=== PATIENT | male | born 1930 ===

== ENCOUNTER 2017-06-20 16:00 | Inpatient (IN) | payer MEDICARE, BC ==
[2017-07-11] MEDS ORDERED: WARF3TAB59 PO (16:55)
[2017-07-11] MEDS ORDERED: ASPI81TA31 PO (16:55)
[2017-07-11] MEDS ORDERED: SIMV40TA5 PO (16:55)
[2017-07-11] MEDS ORDERED: SOTA80TA PO (16:55)
[2017-07-11] MEDS ORDERED: LATA2.5D7 EACHEYE (16:55)
[2017-07-11] MEDS ORDERED: CARV6.252 PO (16:55)
[2017-07-11] MEDS ORDERED: FURO-152 PO (16:55)
[2017-07-11] MEDS ORDERED: POTA10CA43 PO (16:55)
[2017-07-11] MEDS ORDERED: RAMI10CA PO (16:55)
[2017-07-11] MEDS ORDERED: PROB500T9 PO (16:55)
[2017-07-11] MEDS ORDERED: ALPR0.5T8 PO (17:57)
[2017-07-16] MEDS ORDERED: RAMI5CAP PO (18:00)
[2017-07-19] MEDS ORDERED: Z GUARD REMEDY PASTE TOP (10:09)
[2017-07-19] MEDS ORDERED: DOCU-141 PO (10:09)
[2017-07-19] MEDS ORDERED: LACT1CAP57 PO (10:09)
[2017-07-19] MEDS ORDERED: CLOT30CR24 TP (10:09)
== END 2017-07-22 16:00 | disposition home health service (06) | DRG 559 ==
LOC: UNDOADMIN 16:00 → UNDODISIN 07-22 16:00
PROVIDERS: ADMIT Internal Medicine; ATTEND Internal Medicine
DX: S72.142D Displaced intertrochanteric fracture of left femur, subsequent encounter for closed fracture with routine healing (principal); K25.4 Chronic or unspecified gastric ulcer with hemorrhage; K22.6 Gastro-esophageal laceration-hemorrhage syndrome; D68.59 Other primary thrombophilia; I07.1 Rheumatic tricuspid insufficiency; D62 Acute posthemorrhagic anemia; I50.22 Chronic systolic (congestive) heart failure; I11.0 Hypertensive heart disease with heart failure; D72.829 Elevated white blood cell count, unspecified; I27.20 Pulmonary hypertension, unspecified; I25.5 Ischemic cardiomyopathy; I25.10 Atherosclerotic heart disease of native coronary artery without angina pectoris; I48.2 Chronic atrial fibrillation; Z86.73 Personal history of transient ischemic attack (TIA), and cerebral infarction without residual deficits; D53.9 Nutritional anemia, unspecified; E78.5 Hyperlipidemia, unspecified; K20.9 Esophagitis, unspecified; K22.8 Other specified diseases of esophagus; Z95.810 Presence of automatic (implantable) cardiac defibrillator; R26.9 Unspecified abnormalities of gait and mobility; W01.0XXD Fall on same level from slipping, tripping and stumbling without subsequent striking against object, subsequent encounter; Z95.1 Presence of aortocoronary bypass graft; Z95.2 Presence of prosthetic heart valve; Z82.49 Family history of ischemic heart disease and other diseases of the circulatory system; Z82.3 Family history of stroke; R41.82 Altered mental status, unspecified
CPT/HCPCS: 36415; 70030-TC; 71045; 83550; 83735; 84100; 85025; 85610; 86850; 86900; 86901; 86920; 92523; 93005; 97110; 97112; 97116; 97165; 97530; 97535; A4663; C9113; J2543; J3370; J3490; J7030; J7050; J7060; J8499; P9016-BL; P9021

== ENCOUNTER 2017-07-11 16:29 | Inpatient (IN) | payer MEDICARE, BC ==
[~2017-07-11] VITALS: Ht 172.7 cm; Wt 56.7 kg
[2017-07-11] MEDS ORDERED: POTA10CA43 PO (16:55)
[2017-07-11] MEDS ORDERED: SIMV40TA5 PO (16:55)
[2017-07-11] MEDS ORDERED: ASPI81TA31 PO (16:55)
[2017-07-11] MEDS ORDERED: LATA2.5D7 EACHEYE (16:55)
[2017-07-11] MEDS ORDERED: SOTA80TA PO (16:55)
[2017-07-11] MEDS ORDERED: PROB500T9 PO (16:55)
[2017-07-11] MEDS ORDERED: FURO-152 PO (16:55)
[2017-07-11] MEDS ORDERED: CARV6.252 PO (16:55)
[2017-07-11] MEDS ORDERED: WARF3TAB59 PO (16:55)
[2017-07-11] MEDS ORDERED: RAMI10CA PO (16:55)
[2017-07-11] MEDS ORDERED: HYDROCODONE/APAP 5-325MG TABLET PO PRN (17:30)
[2017-07-11] MEDS ORDERED: MAGNESIUM HYDROXIDE 30 ML LIQUID UDC PO PRN (17:30)
[2017-07-11] MEDS ORDERED: ACETAMINOPHEN 325 MG TABLET PO PRN (17:30)
[2017-07-11] MEDS ORDERED: Z GUARD REMEDY PASTE 57 GM TUBE TOP PRN (17:30)
[2017-07-11] MEDS ORDERED: ZOLPIDEM 5 MG TABLET PO PRN (17:30)
[2017-07-11] MEDS ORDERED: ONDANSETRON 4 MG/2 ML VIAL IV PRN (17:30)
[2017-07-11] MEDS ORDERED: ALPR0.5T8 PO (17:57)
[2017-07-11 18:22] VITALS: BP 95/56
[2017-07-11 20:21] VITALS: BP 95/60
[2017-07-11] MEDS ORDERED: DOCUSATE SODIUM 100 MG CAPSULE PO SCH (21:00)
[2017-07-11] MEDS ORDERED: ALPRAZOLAM 0.5 MG TABLET PO SCH (22:30)
[2017-07-12] VITALS (13 sets, daily range): BP systolic 108–128; BP diastolic 54–72
[2017-07-12] MEDS ORDERED: PANTOPRAZOLE SODIUM 40 MG TABLET.DR PO SCH (07:00)
[2017-07-12 07:25] LABS: CARBON DIOXIDE 26 mmol/L (21-32); CHLORIDE 101 mmol/L (98-107); CHOLESTEROL 78 mg/dL (<200); CREATININE 0.9 mg/dL (0.6-1.3); GLUCOSE 95 mg/dL (74-106); HDL CHOLESTEROL 24 mg/dL (40-60); PHOSPHOROUS 2.4 mg/dL (2.5-4.9); POTASSIUM 3.7 mmol/L (3.5-5.1); TRIGLYCERIDES 59 MG/DL (30-150); UREA NITROGEN, BLOOD 13 mg/dL (7-18)
[2017-07-12 07:30] LABS: EOSINOPHILS # (AUTO) 0.5 K/uL (0.0-0.7); MEAN CORPUSCULAR HGB CONC 34 g/dL (32.5-36.3); MONOCYTES # (AUTO) 1.5 K/uL (2.0-10.0); NEUTROPHILS # (AUTO) 7.1 K/uL (1.8-8.9)
[2017-07-12 07:35] LABS: BASOPHILS % (AUTO) 0.3 % (0.0-2.0); EOSINOPHILS % (AUTO) 4.2 % (0.0-7.0); LYMPHOCYTES # (AUTO) 3.4 K/uL (20.0-40.0); MEAN CORPUSCULAR HEMOGLOBIN 36.1 uug (23.8-33.4); MEAN CORPUSCULAR VOLUME 105.1 fL (73.0-96.2); MONOCYTES % (AUTO) 12.1 % (0.0-11.0); NEUTROPHILS % (AUTO) 56.4 % (38.5-71.5); PLATELET COUNT (AUTO) 177 K/uL (152-348); WHITE BLOOD COUNT (AUTO) 12.6 K/uL (3.6-10.2)
[2017-07-12 07:39] LABS: RED BLOOD CELL COUNT(AUTO) 1.96 MIL/uL (4.06-5.63)
[2017-07-12 07:41] LABS: HEMOGLOBIN 7.1 g/dL (12.5-16.3)
[2017-07-12 07:42] LABS: HEMATOCRIT 20.6 % (36.7-47.1)
[2017-07-12] MEDS ORDERED: CARVEDILOL 6.25 MG TABLET PO SCH (08:00)
[2017-07-12] MEDS: RAMIPRIL 5 MG CAPSULE PO SCH (09:00)
[2017-07-12] MEDS: ASPIRIN 81 MG TAB.CHEW PO SCH (09:16)
[2017-07-12] MEDS: POTASSIUM CHLORIDE 10 MEQ TAB.PRT.SR PO SCH (09:16)
[2017-07-12] MEDS: FUROSEMIDE 20 MG TABLET PO SCH (09:16)
[2017-07-12] MEDS: PROBENECID 500 MG TABLET PO SCH (09:19)
[2017-07-12 13:51] LABS: *OCCULT BLOOD STOOL POSITIVE (NEGATIVE)
[2017-07-12] MEDS ORDERED: NEUTRA PHOS PACKET PO ONE (15:30)
[2017-07-12] MEDS: SOTALOL HCL 80 MG TABLET PO SCH (16:31)
[2017-07-12] MEDS: WARFARIN SODIUM 3 MG TABLET PO SCH (16:56)
[2017-07-12] MEDS: SIMVASTATIN 40 MG TABLET PO SCH (20:45)
[2017-07-12] MEDS: ALPRAZOLAM 0.5 MG TABLET PO SCH (20:45)
[2017-07-12] MEDS: LATANOPROST OPHT DROP 2.5 ML BOTTLE EACHEYE SCH (20:46)
[2017-07-13] MEDS ORDERED: MAGNESIUM HYDROXIDE 30 ML LIQUID UDC PO PRN (00:15)
[2017-07-13] MEDS ORDERED: FUROSEMIDE 20 MG/2 ML VIAL IV PRN (00:45)
[2017-07-13] MEDS: HYDROCODONE/APAP 5-325MG TABLET PO PRN ×2 (01:37→23:36)
[2017-07-13 01:42] VITALS: BP 110/67
[2017-07-13] MEDS: SOTALOL HCL 80 MG TABLET PO SCH (06:33)
[2017-07-13 07:10] LABS: ALANINE AMINOTRANSFERASE 30 U/L (16-63); ALKALINE PHOSPHATASE 78 U/L (50-136); ASPARTATE AMINOTRANSFERASE 32 U/L (15-37); BILIRUBIN,TOTAL 1.4 mg/dL (0.2-1.0); CARBON DIOXIDE 27 mmol/L (21-32); CHLORIDE 102 mmol/L (98-107); CREATININE 0.9 mg/dL (0.6-1.3); GLUCOSE 99 mg/dL (74-106); POTASSIUM 4.4 mmol/L (3.5-5.1); TOTAL PROTEIN, SERUM 5.6 g/dL (6.4-8.2); UREA NITROGEN, BLOOD 13 mg/dL (7-18)
[2017-07-13 07:46] LABS: BASOPHILS % (AUTO) 0.2 % (0.0-2.0); EOSINOPHILS # (AUTO) 0.6 K/uL (0.0-0.7); EOSINOPHILS % (AUTO) 4.2 % (0.0-7.0); LYMPHOCYTES # (AUTO) 3.9 K/uL (20.0-40.0); LYMPHOCYTES % (AUTO) 29.9 % (20.5-51.5); MEAN CORPUSCULAR HEMOGLOBIN 33.8 uug (23.8-33.4); MEAN CORPUSCULAR HGB CONC 34 g/dL (32.5-36.3); MONOCYTES # (AUTO) 1.3 K/uL (2.0-10.0); NEUTROPHILS # (AUTO) 7.3 K/uL (1.8-8.9); NEUTROPHILS % (AUTO) 55.7 % (38.5-71.5); PLATELET COUNT (AUTO) 182 K/uL (152-348); WHITE BLOOD COUNT (AUTO) 13.1 K/uL (3.6-10.2)
[2017-07-13 07:59] VITALS: BP 119/65
[2017-07-13 08:15] LABS: RED BLOOD CELL COUNT(AUTO) 2.45 MIL/uL (4.06-5.63)
[2017-07-13 08:16] LABS: HEMATOCRIT 24.5 % (36.7-47.1); HEMOGLOBIN 8.3 g/dL (12.5-16.3)
[2017-07-13 08:17] LABS: MEAN CORPUSCULAR VOLUME 100.1 fL (73.0-96.2)
[2017-07-13] MEDS: FUROSEMIDE 20 MG TABLET PO SCH (08:48)
[2017-07-13] MEDS: RAMIPRIL 5 MG CAPSULE PO SCH (08:48)
[2017-07-13] MEDS: ASPIRIN 81 MG TAB.CHEW PO SCH (08:48)
[2017-07-13] MEDS: POTASSIUM CHLORIDE 10 MEQ TAB.PRT.SR PO SCH (08:48)
[2017-07-13] MEDS: PROBENECID 500 MG TABLET PO SCH (08:50)
[2017-07-13 09:21] LABS: MAGNESIUM 2.1 mg/dL (1.8-2.4); PHOSPHOROUS 2.7 mg/dL (2.5-4.9)
[2017-07-13] MEDS: WARFARIN SODIUM 3 MG TABLET PO SCH (18:54)
[2017-07-13] MEDS: CARVEDILOL 3.125 MG TABLET PO SCH (18:57)
[2017-07-13 19:53] VITALS: BP 110/62
[2017-07-13] MEDS: ALPRAZOLAM 0.5 MG TABLET PO SCH (21:13)
[2017-07-13] MEDS: SIMVASTATIN 40 MG TABLET PO SCH (21:13)
[2017-07-13] MEDS: LATANOPROST OPHT DROP 2.5 ML BOTTLE EACHEYE SCH (21:13)
[2017-07-14 07:23] LABS: BASOPHILS % (AUTO) 0.2 % (0.0-2.0); EOSINOPHILS # (AUTO) 0.6 K/uL (0.0-0.7); EOSINOPHILS % (AUTO) 4.2 % (0.0-7.0); HEMOGLOBIN 8.4 g/dL (12.5-16.3); LYMPHOCYTES # (AUTO) 3.8 K/uL (20.0-40.0); LYMPHOCYTES % (AUTO) 27.8 % (20.5-51.5); MEAN CORPUSCULAR HEMOGLOBIN 34.2 uug (23.8-33.4); MEAN CORPUSCULAR HGB CONC 34 g/dL (32.5-36.3); MEAN CORPUSCULAR VOLUME 101.6 fL (73.0-96.2); MONOCYTES # (AUTO) 1.3 K/uL (2.0-10.0); MONOCYTES % (AUTO) 9.7 % (0.0-11.0); NEUTROPHILS % (AUTO) 58.1 % (38.5-71.5); PLATELET COUNT (AUTO) 212 K/uL (152-348); WHITE BLOOD COUNT (AUTO) 13.8 K/uL (3.6-10.2)
[2017-07-14 07:25] LABS: RED BLOOD CELL COUNT(AUTO) 2.46 MIL/uL (4.06-5.63)
[2017-07-14 08:28] VITALS: BP 120/54
[2017-07-14] MEDS: LACTASE PO SCH ×3 (08:29→17:23)
[2017-07-14] MEDS: POTASSIUM CHLORIDE 10 MEQ TAB.PRT.SR PO SCH (08:29)
[2017-07-14] MEDS: PROBENECID 500 MG TABLET PO SCH (08:30)
[2017-07-14] MEDS: RAMIPRIL 5 MG CAPSULE PO SCH (08:30)
[2017-07-14] MEDS: FUROSEMIDE 20 MG TABLET PO SCH (08:30)
[2017-07-14] MEDS: CARVEDILOL 3.125 MG TABLET PO SCH ×2 (08:31→18:00)
[2017-07-14] MEDS ORDERED: PANTOPRAZOLE SODIUM 40 MG VIAL IV SCH (09:00)
[2017-07-14] MEDS: SUCRALFATE 1 G TABLET PO SCH ×2 (14:15→17:23)
[2017-07-14] MEDS: PANTOPRAZOLE SODIUM 40 MG TABLET.DR PO SCH (17:23)
[2017-07-14] MEDS: WARFARIN SODIUM 3 MG TABLET PO SCH (17:30)
[2017-07-14 19:30] VITALS: BP 127/76
[2017-07-14] MEDS ORDERED: MIRALAX 17 GM POWD.PACK PO PRN (19:30)
[2017-07-14] MEDS: ALPRAZOLAM 0.5 MG TABLET PO SCH (20:16)
[2017-07-14] MEDS: SIMVASTATIN 40 MG TABLET PO SCH (20:16)
[2017-07-14] MEDS: LATANOPROST OPHT DROP 2.5 ML BOTTLE EACHEYE SCH (20:17)
[2017-07-14] MEDS: HYDROCODONE/APAP 5-325MG TABLET PO PRN (20:18)
[2017-07-15 08:00] VITALS: BP 108/56
[2017-07-15] MEDS: LACTASE PO SCH ×3 (08:39→17:01)
[2017-07-15] MEDS: SUCRALFATE 1 G TABLET PO SCH ×3 (08:39→17:02)
[2017-07-15] MEDS: CARVEDILOL 3.125 MG TABLET PO SCH ×2 (08:40→17:01)
[2017-07-15] MEDS: PANTOPRAZOLE SODIUM 40 MG TABLET.DR PO SCH ×2 (08:40→17:03)
[2017-07-15] MEDS: PROBENECID 500 MG TABLET PO SCH (08:41)
[2017-07-15] MEDS: RAMIPRIL 5 MG CAPSULE PO SCH (08:41)
[2017-07-15] MEDS: FUROSEMIDE 20 MG TABLET PO SCH (08:48)
[2017-07-15] MEDS: POTASSIUM CHLORIDE 10 MEQ TAB.PRT.SR PO SCH (08:52)
[2017-07-15 09:38] LABS: IRON, SERUM 50 ug/dL (50-175)
[2017-07-15 09:52] LABS: BASOPHILS % (AUTO) 0.2 % (0.0-2.0); EOSINOPHILS # (AUTO) 0.6 K/uL (0.0-0.7); EOSINOPHILS % (AUTO) 3.8 % (0.0-7.0); HEMOGLOBIN 9.3 g/dL (12.5-16.3); LYMPHOCYTES % (AUTO) 27.2 % (20.5-51.5); MONOCYTES # (AUTO) 1.2 K/uL (2.0-10.0); NEUTROPHILS % (AUTO) 60.8 % (38.5-71.5)
[2017-07-15 10:00] LABS: HEMATOCRIT 27.5 % (36.7-47.1); MEAN CORPUSCULAR HEMOGLOBIN 34.6 uug (23.8-33.4); MEAN CORPUSCULAR HGB CONC 34 g/dL (32.5-36.3); MEAN CORPUSCULAR VOLUME 102.2 fL (73.0-96.2); PLATELET COUNT (AUTO) 262 K/uL (152-348); RED BLOOD CELL COUNT(AUTO) 2.69 MIL/uL (4.06-5.63); WHITE BLOOD COUNT (AUTO) 14.6 K/uL (3.6-10.2)
[2017-07-15] MEDS: HYDROCODONE/APAP 5-325MG TABLET PO PRN (12:20)
[2017-07-15] MEDS: WARFARIN SODIUM 3 MG TABLET PO SCH (17:03)
[2017-07-15 20:20] VITALS: BP 100/51
[2017-07-15] MEDS: LATANOPROST OPHT DROP 2.5 ML BOTTLE EACHEYE SCH (21:05)
[2017-07-15 21:06] VITALS: BP 104/56
[2017-07-15] MEDS: ALPRAZOLAM 0.5 MG TABLET PO SCH (21:06)
[2017-07-15] MEDS: SIMVASTATIN 40 MG TABLET PO SCH (21:06)
[2017-07-16 07:30] VITALS: BP 106/66
[2017-07-16 08:21] LABS: *OCCULT BLOOD STOOL NEGATIVE (NEGATIVE)
[2017-07-16] MEDS: LACTASE PO SCH ×2 (08:28→11:30)
[2017-07-16] MEDS: RAMIPRIL 5 MG CAPSULE PO SCH ×2 (08:29→09:00)
[2017-07-16] MEDS: SUCRALFATE 1 G TABLET PO SCH (08:29)
[2017-07-16] MEDS: FUROSEMIDE 20 MG TABLET PO SCH (08:29)
[2017-07-16] MEDS: PROBENECID 500 MG TABLET PO SCH (08:29)
[2017-07-16] MEDS: POTASSIUM CHLORIDE 10 MEQ TAB.PRT.SR PO SCH (08:29)
[2017-07-16] MEDS: PANTOPRAZOLE SODIUM 40 MG TABLET.DR PO SCH (08:30)
[2017-07-16] MEDS: CARVEDILOL 3.125 MG TABLET PO SCH ×2 (08:30→09:30)
[2017-07-16] MEDS ORDERED: NITROGLYCERIN 0.4 MG/TAB BOTTLE SL PRN (12:30)
[2017-07-16 12:52] LABS: CARBON DIOXIDE 24 mmol/L (21-32); CHLORIDE 96 mmol/L (98-107); GLUCOSE 96 mg/dL (74-106); UREA NITROGEN, BLOOD 15 mg/dL (7-18)
[2017-07-16 12:56] LABS: BASOPHILS # (AUTO) 0.1 K/uL (0.0-8.0); BASOPHILS % (AUTO) 0.3 % (0.0-2.0); EOSINOPHILS # (AUTO) 0.4 K/uL (0.0-0.7); EOSINOPHILS % (AUTO) 1.9 % (0.0-7.0); HEMATOCRIT 31.1 % (36.7-47.1); HEMOGLOBIN 10.3 g/dL (12.5-16.3); LYMPHOCYTES # (AUTO) 8.1 K/uL (20.0-40.0); LYMPHOCYTES % (AUTO) 39.6 % (20.5-51.5); MEAN CORPUSCULAR HGB CONC 33 g/dL (32.5-36.3); MEAN CORPUSCULAR VOLUME 102.1 fL (73.0-96.2); MONOCYTES # (AUTO) 1.7 K/uL (2.0-10.0); MONOCYTES % (AUTO) 8.3 % (0.0-11.0); NEUTROPHILS # (AUTO) 10.3 K/uL (1.8-8.9); NEUTROPHILS % (AUTO) 49.9 % (38.5-71.5); PLATELET COUNT (AUTO) 382 K/uL (152-348); RED BLOOD CELL COUNT(AUTO) 3.04 MIL/uL (4.06-5.63); WHITE BLOOD COUNT (AUTO) 20.5 K/uL (3.6-10.2)
[2017-07-16 13:03] LABS: ALANINE AMINOTRANSFERASE 44 U/L (16-63); ALKALINE PHOSPHATASE 119 U/L (50-136); ASPARTATE AMINOTRANSFERASE 35 U/L (15-37); BILIRUBIN,TOTAL 1.6 mg/dL (0.2-1.0); PHOSPHOROUS 2.2 mg/dL (2.5-4.9); TOTAL PROTEIN, SERUM 7.4 g/dL (6.4-8.2)
[2017-07-16] MEDS ORDERED: RAMI5CAP PO (18:00)
[2017-07-18 20:00] VITALS: BP 104/60
[2017-07-19 08:45] VITALS: BP 134/84
[2017-07-19] MEDS ORDERED: Z GUARD REMEDY PASTE 57 GM TUBE TOP PRN (10:45)
[2017-07-19] MEDS: ASPIRIN 81 MG TAB.CHEW PO SCH (11:06)
[2017-07-19] MEDS: CARVEDILOL 3.125 MG TABLET PO SCH ×2 (11:07→17:11)
[2017-07-19] MEDS ORDERED: WARFARIN SODIUM 3 MG TABLET PO SCH (17:00)
[2017-07-19] MEDS: ACETAMINOPHEN 325 MG TABLET PO PRN ×2 (17:30→23:29)
[2017-07-19] MEDS ORDERED: PIPERACILLIN SODIUM/TAZOBACTAM 4.5 G in IV DEXTROSE 5% 50 ML IV SCH (19:00)
[2017-07-19 20:10] VITALS: BP 137/67
[2017-07-19] MEDS: ALPRAZOLAM 0.5 MG TABLET PO SCH (20:13)
[2017-07-19] MEDS: LACTOBACILLUS RHAMNOSUS GG 1 EACH CAPSULE PO SCH (20:13)
[2017-07-19] MEDS: DOCUSATE SODIUM 100 MG CAPSULE PO SCH (20:14)
[2017-07-19] MEDS: CLOTRIMAZOLE 1% CREAM 30 GM TUBE TP SCH (20:17)
[2017-07-19] MEDS: VANCOMYCIN IV 1 G in PREMIXED 0 EACH IV SCH (20:20)
[2017-07-19 20:48] LABS: *BILIRUBIN,URIN NEGATIVE (NEGATIVE); *BLOOD, URINE 2+ (NEGATIVE); *CLARITY,URINE CLEAR (CLEAR); *COLOR,URINE YELLOW (YELLOW); *KETONES,URINE TRACE (NEGATIVE); *PROTEIN,URINE 1+ (NEGATIVE); *UROBILINOGEN,URINE 0.2 E.U./dl (NORMAL); LEUKOCYTE ESTERASE ,URINE NEGATIVE (NEGATIVE); NITRITE, URINE NEGATIVE (NEGATIVE); PH,URINE 5.5 (5.0-8.0); UGLUCOSE NEGATIVE (NEGATIVE)
[2017-07-19] MEDS: LATANOPROST OPHT DROP 2.5 ML BOTTLE EACHEYE SCH (21:07)
[2017-07-19 21:10] LABS: MUCUS,URINE MANY /LPF (0-FEW); WBC,URINE 0-3 /HPF (0-3)
[2017-07-20] MEDS: PIPERACILLIN/TAZOBACTAM/D5W 2.25 G in PREMIXED 1 EACH IV SCH ×3 (00:02→12:05)
[2017-07-20] MEDS: ACETAMINOPHEN 325 MG TABLET PO PRN (05:58)
[2017-07-20 07:32] LABS: BASOPHILS % (AUTO) 0.3 % (0.0-2.0); CARBON DIOXIDE 26 mmol/L (21-32); CHLORIDE 97 mmol/L (98-107); CREATININE 0.8 mg/dL (0.6-1.3); EOSINOPHILS # (AUTO) 0.2 K/uL (0.0-0.7); EOSINOPHILS % (AUTO) 1.9 % (0.0-7.0); GLUCOSE 96 mg/dL (74-106); HEMATOCRIT 24.5 % (36.7-47.1); HEMOGLOBIN 8.6 g/dL (12.5-16.3); LYMPHOCYTES # (AUTO) 2.7 K/uL (20.0-40.0); LYMPHOCYTES % (AUTO) 27.8 % (20.5-51.5); MEAN CORPUSCULAR HEMOGLOBIN 40.4 uug (23.8-33.4); MEAN CORPUSCULAR HGB CONC 35 g/dL (32.5-36.3); MEAN CORPUSCULAR VOLUME 114.4 fL (73.0-96.2); MONOCYTES # (AUTO) 1.4 K/uL (2.0-10.0); MONOCYTES % (AUTO) 14.7 % (0.0-11.0); NEUTROPHILS # (AUTO) 5.4 K/uL (1.8-8.9); NEUTROPHILS % (AUTO) 55.3 % (38.5-71.5); PLATELET COUNT (AUTO) 227 K/uL (152-348); POTASSIUM 3.5 mmol/L (3.5-5.1); UREA NITROGEN, BLOOD 13 mg/dL (7-18); WHITE BLOOD COUNT (AUTO) 9.8 K/uL (3.6-10.2)
[2017-07-20 07:45] LABS: RED BLOOD CELL COUNT(AUTO) 2.14 MIL/uL (4.06-5.63)
[2017-07-20] MEDS: CLOTRIMAZOLE 1% CREAM 30 GM TUBE TP SCH ×2 (07:54→20:37)
[2017-07-20] MEDS: LACTOBACILLUS RHAMNOSUS GG 1 EACH CAPSULE PO SCH ×2 (08:21→20:32)
[2017-07-20] MEDS: ASPIRIN 81 MG TAB.CHEW PO SCH (08:21)
[2017-07-20] MEDS: CARVEDILOL 3.125 MG TABLET PO SCH ×2 (08:21→17:11)
[2017-07-20 08:29] VITALS: BP 127/61
[2017-07-20] MEDS ORDERED: WARFARIN SODIUM 3 MG TABLET PO SCH (17:00)
[2017-07-20] MEDS ORDERED: WARFARIN SODIUM 4 MG TABLET PO SCH (17:00)
[2017-07-20] MEDS: PIPERACILLIN SODIUM/TAZOBACTAM 4.5 G in IV DEXTROSE 5% 50 ML IV SCH (17:58)
[2017-07-20 18:26] VITALS: BP 110/67
[2017-07-20] MEDS: ALPRAZOLAM 0.5 MG TABLET PO SCH (20:32)
[2017-07-20] MEDS: LATANOPROST OPHT DROP 2.5 ML BOTTLE EACHEYE SCH (20:32)
[2017-07-20] MEDS: DOCUSATE SODIUM 100 MG CAPSULE PO SCH (20:32)
[2017-07-20] MEDS: SIMVASTATIN 40 MG TABLET PO SCH (20:33)
[2017-07-20] MEDS: VANCOMYCIN IV 1 G in PREMIXED 0 EACH IV SCH (23:10)
[2017-07-21] MEDS: PIPERACILLIN SODIUM/TAZOBACTAM 4.5 G in IV DEXTROSE 5% 50 ML IV SCH ×3 (01:54→17:29)
[2017-07-21] MEDS: CARVEDILOL 3.125 MG TABLET PO SCH ×2 (08:00→17:32)
[2017-07-21 08:59] VITALS: BP 101/65
[2017-07-21] MEDS: RAMIPRIL 5 MG CAPSULE PO SCH (09:00)
[2017-07-21] MEDS: SUCRALFATE 1 G TABLET PO SCH ×4 (09:16→17:26)
[2017-07-21] MEDS: LACTOBACILLUS RHAMNOSUS GG 1 EACH CAPSULE PO SCH ×2 (09:17→20:33)
[2017-07-21] MEDS: ASPIRIN 81 MG TAB.CHEW PO SCH (09:17)
[2017-07-21] MEDS: LACTASE PO SCH ×3 (09:17→17:26)
[2017-07-21] MEDS: ACETAMINOPHEN 325 MG TABLET PO PRN (09:17)
[2017-07-21] MEDS: CLOTRIMAZOLE 1% CREAM 30 GM TUBE TP SCH ×2 (09:18→20:35)
[2017-07-21] MEDS: PROBENECID 500 MG TABLET PO SCH (09:18)
[2017-07-21 10:52] LABS: BASOPHILS % (AUTO) 0.3 % (0.0-2.0); EOSINOPHILS # (AUTO) 0.2 K/uL (0.0-0.7); MONOCYTES # (AUTO) 1.4 K/uL (2.0-10.0)
[2017-07-21 10:57] LABS: EOSINOPHILS % (AUTO) 1.2 % (0.0-7.0); HEMATOCRIT 26.3 % (36.7-47.1); LYMPHOCYTES # (AUTO) 5.2 K/uL (20.0-40.0); LYMPHOCYTES % (AUTO) 39.9 % (20.5-51.5); MEAN CORPUSCULAR HEMOGLOBIN 34.9 uug (23.8-33.4); MEAN CORPUSCULAR HGB CONC 34 g/dL (32.5-36.3); MONOCYTES % (AUTO) 10.8 % (0.0-11.0); NEUTROPHILS # (AUTO) 6.3 K/uL (1.8-8.9); NEUTROPHILS % (AUTO) 47.8 % (38.5-71.5); RED BLOOD CELL COUNT(AUTO) 2.59 MIL/uL (4.06-5.63)
[2017-07-21 10:59] LABS: WHITE BLOOD COUNT (AUTO) 13.1 K/uL (3.6-10.2)
[2017-07-21 11:00] LABS: MEAN CORPUSCULAR VOLUME 101.7 fL (73.0-96.2); PLATELET COUNT (AUTO) 284 K/uL (152-348)
[2017-07-21] MEDS ORDERED: WARFARIN SODIUM 3 MG TABLET PO SCH (18:30)
[2017-07-21] MEDS: DOCUSATE SODIUM 100 MG CAPSULE PO SCH (20:33)
[2017-07-21] MEDS: SIMVASTATIN 40 MG TABLET PO SCH (20:33)
[2017-07-21] MEDS: ALPRAZOLAM 0.5 MG TABLET PO SCH (20:33)
[2017-07-21 20:35] VITALS: BP 106/59
[2017-07-21] MEDS: LATANOPROST OPHT DROP 2.5 ML BOTTLE EACHEYE SCH (20:39)
[2017-07-22] MEDS: VANCOMYCIN IV 1 G in PREMIXED 0 EACH IV SCH (00:12)
[2017-07-22] MEDS: PIPERACILLIN SODIUM/TAZOBACTAM 4.5 G in IV DEXTROSE 5% 50 ML IV SCH (01:54)
[2017-07-22 08:00] VITALS: BP 115/66
[2017-07-22] MEDS: ASPIRIN 81 MG TAB.CHEW PO SCH (08:52)
[2017-07-22] MEDS: SUCRALFATE 1 G TABLET PO SCH (08:52)
[2017-07-22] MEDS: ACETAMINOPHEN 325 MG TABLET PO PRN (08:52)
[2017-07-22] MEDS: LACTOBACILLUS RHAMNOSUS GG 1 EACH CAPSULE PO SCH (08:52)
[2017-07-22 08:53] VITALS: BP 115/66
[2017-07-22] MEDS: LACTASE PO SCH (08:53)
[2017-07-22] MEDS: CARVEDILOL 3.125 MG TABLET PO SCH (08:53)
[2017-07-22] MEDS: RAMIPRIL 5 MG CAPSULE PO SCH (08:53)
[2017-07-22] MEDS: PROBENECID 500 MG TABLET PO SCH (08:54)
[2017-07-22] MEDS: CLOTRIMAZOLE 1% CREAM 30 GM TUBE TP SCH (08:54)
[2017-07-22] MEDS ORDERED: WARFARIN SODIUM 3 MG TABLET PO SCH (17:00)
== END 2017-07-16 16:00 | disposition short-term general hospital (02) | DRG 559 ==
LOC: UNDOADMIN 16:29 → UNDOLOA 07-16 14:00 → UNDODISIN 07-22 11:00
PROVIDERS: ADMIT Physical Medicine & Rehabilitation Pain Medicine; ATTEND Physical Medicine & Rehabilitation Pain Medicine
PROC: 30233N1 Transfusion of Nonautologous Red Blood Cells into Peripheral Vein, Percutaneous Approach (ICD-10-PCS; principal; 2017-07-12)
DX: S72.142D Displaced intertrochanteric fracture of left femur, subsequent encounter for closed fracture with routine healing (principal); K25.4 Chronic or unspecified gastric ulcer with hemorrhage; K22.6 Gastro-esophageal laceration-hemorrhage syndrome; D68.59 Other primary thrombophilia; I07.1 Rheumatic tricuspid insufficiency; D62 Acute posthemorrhagic anemia; I50.22 Chronic systolic (congestive) heart failure; I11.0 Hypertensive heart disease with heart failure; D72.829 Elevated white blood cell count, unspecified; I27.20 Pulmonary hypertension, unspecified; I25.5 Ischemic cardiomyopathy; I25.10 Atherosclerotic heart disease of native coronary artery without angina pectoris; I48.2 Chronic atrial fibrillation; Z86.73 Personal history of transient ischemic attack (TIA), and cerebral infarction without residual deficits; D53.9 Nutritional anemia, unspecified; E78.5 Hyperlipidemia, unspecified; K20.9 Esophagitis, unspecified; K22.8 Other specified diseases of esophagus; Z95.810 Presence of automatic (implantable) cardiac defibrillator; R26.9 Unspecified abnormalities of gait and mobility; W01.0XXD Fall on same level from slipping, tripping and stumbling without subsequent striking against object, subsequent encounter; Z95.1 Presence of aortocoronary bypass graft; Z95.2 Presence of prosthetic heart valve; Z82.49 Family history of ischemic heart disease and other diseases of the circulatory system; Z82.3 Family history of stroke; R41.82 Altered mental status, unspecified
CPT/HCPCS: 36415; 70030-TC; 71045; 83550; 83735; 84100; 85025; 85610; 86850; 86900; 86901; 86920; 92523; 93005; 97110; 97112; 97116; 97165; 97530; 97535; A4663; C9113; J2543; J3370; J3490; J7030; J7050; J7060; J8499; P9016-BL; P9021

== ENCOUNTER 2017-07-16 12:47 | Inpatient (IN) | payer MEDICARE, BC ==
[~2017-07-16] VITALS: Ht 167.6 cm; Wt 56.4 kg
[~2017-07-16 12:47] MED LIST: ALPR0.5T8 PO; ASPI81TA31 PO; CARV6.252 PO; FURO-152 PO; LATA2.5D7 EACHEYE; POTA10CA43 PO; PROB500T9 PO; RAMI10CA PO; SIMV40TA5 PO; SOTA80TA PO; WARF3TAB59 PO
[2017-07-16] MEDS ORDERED: ALPRAZOLAM 0.5 MG TABLET ONE (13:15)
[2017-07-16] MEDS ORDERED: ALPRAZOLAM 0.25 MG TABLET PO ONE (13:15)
[2017-07-16] MEDS ORDERED: LORAZEPAM 2 MG/1 ML VIAL IV ONE (13:30)
[2017-07-16] MEDS ORDERED: LORAZEPAM 2 MG/1 ML VIAL ONE (13:33)
[2017-07-16 15:00] VITALS: BP 107/55
[2017-07-16] MEDS ORDERED: Z GUARD REMEDY PASTE 57 GM TUBE TOP PRN (16:00)
[2017-07-16] MEDS ORDERED: NEUTRA PHOS PACKET PO ONE (16:30)
[2017-07-16 16:50] LABS: BILIRUBIN,DIRECT 0.3 mg/dL (0.0-0.2); BILIRUBIN,TOTAL 1.5 mg/dL (0.2-1.0); TOTAL PROTEIN, SERUM 6.6 g/dL (6.4-8.2)
[2017-07-16] MEDS: CARVEDILOL 3.125 MG TABLET PO SCH ×2 (18:00→18:02)
[2017-07-16] MEDS ORDERED: RAMI5CAP PO (18:00)
[2017-07-16] MEDS ORDERED: ACETAMINOPHEN 325 MG TABLET PO PRN (18:30)
[2017-07-16] MEDS ORDERED: MORPHINE SULFATE 2 MG/1 ML DISP.SYRIN IV PRN (18:30)
[2017-07-16] MEDS ORDERED: LEVALBUTEROL HCL NEB 0.63 MG/3 ML NEBU NEB PRN (18:30)
[2017-07-16] MEDS ORDERED: ONDANSETRON 4 MG/2 ML VIAL IV PRN (18:30)
[2017-07-16] MEDS: WARFARIN SODIUM 3 MG TABLET PO SCH (18:44)
[2017-07-16 20:47] VITALS: BP 150/66
[2017-07-16] MEDS ORDERED: DOCUSATE SODIUM 250 MG CAPSULE PO SCH (21:00)
[2017-07-16] MEDS: DOCUSATE SODIUM 100 MG CAPSULE PO SCH (21:21)
[2017-07-16] MEDS: LATANOPROST OPHT DROP 2.5 ML BOTTLE EACHEYE SCH (21:21)
[2017-07-16] MEDS: VANCOMYCIN IV 1 G in PREMIXED 0 EACH IV SCH (21:22)
[2017-07-16] MEDS ORDERED: ALPRAZOLAM 0.5 MG TABLET PO ONE (22:15)
[2017-07-16] MEDS: PIPERACILLIN/TAZOBACTAM/D5W 3.375 G in PREMIXED 1 EACH IV SCH (22:19)
[2017-07-17 00:34] VITALS: BP 116/62
[2017-07-17 04:00] VITALS: BP 146/77
[2017-07-17] MEDS: PIPERACILLIN/TAZOBACTAM/D5W 3.375 G in PREMIXED 1 EACH IV SCH ×3 (05:32→21:07)
[2017-07-17] MEDS: PANTOPRAZOLE SODIUM 40 MG TABLET.DR PO SCH (05:32)
[2017-07-17 07:52] LABS: BASOPHILS % (AUTO) 0.2 % (0.0-2.0); EOSINOPHILS # (AUTO) 0.4 K/uL (0.0-0.7); EOSINOPHILS % (AUTO) 2.8 % (0.0-7.0); LYMPHOCYTES # (AUTO) 4.6 K/uL (20.0-40.0); LYMPHOCYTES % (AUTO) 33.6 % (20.5-51.5); MEAN CORPUSCULAR HEMOGLOBIN 34.6 uug (23.8-33.4); MEAN CORPUSCULAR HGB CONC 34 g/dL (32.5-36.3); MONOCYTES # (AUTO) 1.4 K/uL (2.0-10.0); MONOCYTES % (AUTO) 10.5 % (0.0-11.0); NEUTROPHILS # (AUTO) 7.3 K/uL (1.8-8.9); NEUTROPHILS % (AUTO) 52.9 % (38.5-71.5); RED BLOOD CELL COUNT(AUTO) 2.56 MIL/uL (4.06-5.63)
[2017-07-17 07:54] LABS: HEMOGLOBIN 8.9 g/dL (12.5-16.3); WHITE BLOOD COUNT (AUTO) 13.8 K/uL (3.6-10.2)
[2017-07-17 07:55] LABS: MEAN CORPUSCULAR VOLUME 101.6 fL (73.0-96.2)
[2017-07-17 07:56] VITALS: BP 97/55
[2017-07-17 07:57] LABS: PLATELET COUNT (AUTO) 246 K/uL (152-348)
[2017-07-17] MEDS ORDERED: ALBUTEROL SULFATE 1.25 MG/3 ML NEBU NEB PRN (08:00)
[2017-07-17] MEDS: CARVEDILOL 3.125 MG TABLET PO SCH ×2 (08:57→17:26)
[2017-07-17] MEDS: ASPIRIN 81 MG TAB.CHEW PO SCH (08:58)
[2017-07-17 09:09] LABS: ALANINE AMINOTRANSFERASE 34 U/L (16-63); ALKALINE PHOSPHATASE 108 U/L (50-136); ASPARTATE AMINOTRANSFERASE 31 U/L (15-37); BILIRUBIN,TOTAL 1.4 mg/dL (0.2-1.0); CARBON DIOXIDE 27 mmol/L (21-32); CHLORIDE 97 mmol/L (98-107); GLUCOSE 99 mg/dL (74-106); MAGNESIUM 2.1 mg/dL (1.8-2.4); PHOSPHOROUS 4.4 mg/dL (2.5-4.9); POTASSIUM 4.3 mmol/L (3.5-5.1); TOTAL PROTEIN, SERUM 6.2 g/dL (6.4-8.2); UREA NITROGEN, BLOOD 14 mg/dL (7-18)
[2017-07-17 09:18] LABS: THYROID STIMULATING HORMONE 2.751 mIU/mL (0.358-3.740)
[2017-07-17 11:09] VITALS: BP 100/47
[2017-07-17 15:01] VITALS: BP 103/56
[2017-07-17] MEDS: WARFARIN SODIUM 3 MG TABLET PO SCH (17:28)
[2017-07-17] MEDS ORDERED: ALPRAZOLAM 0.5 MG TABLET PO SCH (18:00)
[2017-07-17 20:10] VITALS: BP 101/56
[2017-07-17] MEDS: DOCUSATE SODIUM 100 MG CAPSULE PO SCH (20:28)
[2017-07-17] MEDS: LATANOPROST OPHT DROP 2.5 ML BOTTLE EACHEYE SCH (20:28)
[2017-07-17] MEDS: LACTOBACILLUS RHAMNOSUS GG 1 EACH CAPSULE PO SCH (20:28)
[2017-07-17] MEDS: CLOTRIMAZOLE 1% CREAM 30 GM TUBE TOP SCH (20:28)
[2017-07-17] MEDS: VANCOMYCIN IV 1 G in PREMIXED 0 EACH IV SCH (21:48)
[2017-07-18 00:01] VITALS: BP 97/55
[2017-07-18 04:34] VITALS: BP 104/55
[2017-07-18] MEDS: PIPERACILLIN/TAZOBACTAM/D5W 3.375 G in PREMIXED 1 EACH IV SCH ×2 (05:09→13:21)
[2017-07-18] MEDS: PANTOPRAZOLE SODIUM 40 MG TABLET.DR PO SCH (06:08)
[2017-07-18 07:02] LABS: CARBON DIOXIDE 27 mmol/L (21-32); CHLORIDE 98 mmol/L (98-107); CREATININE 0.9 mg/dL (0.6-1.3); GLUCOSE 102 mg/dL (74-106); MAGNESIUM 2.1 mg/dL (1.8-2.4); PHOSPHOROUS 3.6 mg/dL (2.5-4.9); POTASSIUM 3.9 mmol/L (3.5-5.1); UREA NITROGEN, BLOOD 13 mg/dL (7-18)
[2017-07-18 07:25] LABS: BASOPHILS % (AUTO) 0.4 % (0.0-2.0); EOSINOPHILS # (AUTO) 0.4 K/uL (0.0-0.7); HEMATOCRIT 26.5 % (36.7-47.1); LYMPHOCYTES # (AUTO) 4.3 K/uL (20.0-40.0); LYMPHOCYTES % (AUTO) 32.1 % (20.5-51.5); MEAN CORPUSCULAR HEMOGLOBIN 34.6 uug (23.8-33.4); MEAN CORPUSCULAR HGB CONC 34 g/dL (32.5-36.3); MONOCYTES # (AUTO) 1.7 K/uL (2.0-10.0); MONOCYTES % (AUTO) 12.4 % (0.0-11.0); NEUTROPHILS % (AUTO) 52.1 % (38.5-71.5); PLATELET COUNT (AUTO) 251 K/uL (152-348); RED BLOOD CELL COUNT(AUTO) 2.58 MIL/uL (4.06-5.63); WHITE BLOOD COUNT (AUTO) 13.4 K/uL (3.6-10.2)
[2017-07-18 07:26] LABS: MEAN CORPUSCULAR VOLUME 102.7 fL (73.0-96.2)
[2017-07-18] MEDS: LACTOBACILLUS RHAMNOSUS GG 1 EACH CAPSULE PO SCH (08:18)
[2017-07-18] MEDS: CARVEDILOL 3.125 MG TABLET PO SCH (08:18)
[2017-07-18] MEDS: ASPIRIN 81 MG TAB.CHEW PO SCH (08:18)
[2017-07-18] MEDS: CLOTRIMAZOLE 1% CREAM 30 GM TUBE TOP SCH (08:19)
[2017-07-18 11:38] VITALS: BP 99/65
[2017-07-18 15:32] VITALS: BP 104/78
[2017-07-19] MEDS ORDERED: CLOT30CR24 TP (10:09)
[2017-07-19] MEDS ORDERED: DOCU-141 PO (10:09)
[2017-07-19] MEDS ORDERED: LACT1CAP57 PO (10:09)
[2017-07-19] MEDS ORDERED: Z GUARD REMEDY PASTE TOP (10:09)
== END 2017-07-18 16:00 | DRG 309 ==
LOC: ER 12:47 → TELE 13:59
PROVIDERS: ADMIT Internal Medicine; ATTEND Internal Medicine
DX: I48.1 Persistent atrial fibrillation (principal); E87.1 Hypo-osmolality and hyponatremia; I11.0 Hypertensive heart disease with heart failure; I27.20 Pulmonary hypertension, unspecified; I07.1 Rheumatic tricuspid insufficiency; D62 Acute posthemorrhagic anemia; I50.22 Chronic systolic (congestive) heart failure; T82.857A Stenosis of other cardiac prosthetic devices, implants and grafts, initial encounter; K92.2 Gastrointestinal hemorrhage, unspecified; I48.2 Chronic atrial fibrillation; Z79.01 Long term (current) use of anticoagulants; I25.10 Atherosclerotic heart disease of native coronary artery without angina pectoris; Z95.1 Presence of aortocoronary bypass graft; Z95.810 Presence of automatic (implantable) cardiac defibrillator; I25.5 Ischemic cardiomyopathy; S72.142D Displaced intertrochanteric fracture of left femur, subsequent encounter for closed fracture with routine healing; W19.XXXD Unspecified fall, subsequent encounter; Z95.3 Presence of xenogenic heart valve; Z74.09 Other reduced mobility; E78.5 Hyperlipidemia, unspecified; I70.0 Atherosclerosis of aorta; Z86.73 Personal history of transient ischemic attack (TIA), and cerebral infarction without residual deficits; Z82.49 Family history of ischemic heart disease and other diseases of the circulatory system; Z82.3 Family history of stroke; K29.60 Other gastritis without bleeding; K27.9 Peptic ulcer, site unspecified, unspecified as acute or chronic, without hemorrhage or perforation; K20.9 Esophagitis, unspecified
CPT/HCPCS: 36415; 70030-TC; 71045; 83605; 83735; 84100; 84443; 85025; 85610; 87040; 93005; 97110; 97116; 97165; 97530; A4663; J2060; J2543; J3370; J7040